=== PATIENT | female | born 1955 | race Caucasian/White ===

== ENCOUNTER 2017-02-23 07:03 | Day surgery (SDC) | payer OTHER ==
[~2017-02-23] VITALS: Ht 160 cm; Wt 93.0 kg
[~2017-02-23 07:03] MED LIST: MULTIPLE VITAMIN PO; SALMON OIL1000 MG PO; TURMERIC CURCUMIN PO; VITAMIN D1000 UNIT PO
--- NOTE | 2017-02-23 07:39 | NUR ---
PRE OP INSTRUCTIONS GIVEN AND SAFETY ISSUES DISCUSSED PT AND SPOUSE HAD QUESTIONS ANSWERED PT CONFIRMED PROCEDURE PT SIGNED CONSENT PT WATCHING TV
--- NOTE | 2017-02-23 10:41 | DIAGNOSTIC IMAGING REPORT ---
PROCEDURE: XR INTRAOPERATIVE LAP SHAYY INDICATION: SURGERICAL TECHNIQUE: Intraoperative fluoroscopy provided for Dr. Byrd performing an intraoperative cholangiogram following cholecystectomy. Total fluoroscopy time 5 seconds. Cumulative dose 1.9 mGy. COMPARISON: None. FINDINGS: A single intraoperative fluoroscopic spot image of the right upper quadrant of the abdomen demonstrates cannulation of the cystic duct stump and opacification of the intrahepatic and extrahepatic biliary tree. There are no filling defects. There is normal passage of contrast into the duodenum. IMPRESSION: 1. Negative intraoperative cholangiogram.
--- NOTE | 2017-02-23 10:46 | NUR ---
PATIENT ARRIVED TO PACU AT 1040. SPONT RESP. AROUSABLE. VITALS STABLE. ABDOMEN SOFT, WITH CLEAN, DRY DRESSINGS. NO NAUSEA AT THIS TIME. WILL CONTINUE TO MONITOR.
[2017-02-23] MEDS ORDERED: NORCO1 TA1 PO (10:50)
--- NOTE | 2017-02-23 10:51 | Provider's Discharge Care Plan ---
Problem, Goal, Plan Problem List 1. Cholelithiasis with chronic cholangitis
--- NOTE | 2017-02-23 10:51 | Provider's Discharge Care Plan ---
Problem, Goal, Plan Problem List 1. Cholelithiasis with chronic cholangitis
--- NOTE | 2017-02-23 11:26 | OPERATIVE REPORT ---
DATE OF SURGERY: 02/23/2017 SURGEON: Tate Byrd MD PERFORMANCE MAKEUP ARTIST: Rony Kay III, MD PREOPERATIVE DIAGNOSIS: 1. Cholelithiasis with chronic cholecystitis POSTOPERATIVE DIAGNOSIS: 1. Cholelithiasis with chronic cholecystitis PROCEDURE PERFORMED: 1. Laparoscopic cholecystectomy with cholangiography. ANESTHESIA: General with endotracheal tube. INDICATIONS: The patient is a 61-year-old woman with gallstones and recurrent right upper quadrant abdominal pain. SURGICAL TECHNIQUE: The patient was taken to main operating room, where a general anesthetic was administered and the patient prepped and draped in the usual sterile fashion. An orogastric tube, IV antibiotics, and sequential compression devices were in place. A local anesthetic of 0.5% Marcaine with epinephrine was used at each incision site. An infraumbilical incision was made and a Veress needle used to insufflate. A 10 mm cannula was passed and visualization was obtained. This demonstrated some adhesions in the right lower quadrant from a previous appendectomy. The gallbladder was elevated and the cystic duct dissected out at the neck of the gallbladder. A clip was placed and a fluoroscopic cholangiogram carried out revealing free flow into the duodenum and no filling defects within the ductal system. The cystic duct and artery were clipped and divided and the gallbladder stripped from the gallbladder fossa using electrocautery. It was pulled to the upper midline site where it was emptied of contents including multiple stones and delivered from the abdomen and submitted for histopathology. The gallbladder bed was inspected and found to be hemostatic and without bile leak. Irrigation and suction were used. Additional Marcaine was instilled, gas was evacuated, and the midline skin sites were closed with interrupted subcuticular 4-0 Vicryl suture. Steri-Strips and dressings were placed at all incisions and the patient left the operating room in good condition. No intraoperative complications were encountered.
--- NOTE | 2017-02-23 11:39 | NUR ---
PT RETURNED FROM PACU NO C/O NAUSEA NO C/O DISCOMFORT DRESSING DRY AND INTACT
[2017-02-23 13:15] VITALS: BP 109/64
--- NOTE | 2017-02-23 13:23 | NUR ---
PT AMBULATED IN ROD MAE WELL AMB TO BR VOIDED SPONTANOUSLY ASKING TO GO HOME STATED STILL FELLS COMFORTABLE. PT OFFERED PAIN MED. STATED DIDN'T WANT ANY REVIEWED DISCHARGE INSTRUCTIONS VERBAL AND WRITTEN PT AND SPOUSE EXPRESSED UNDERSTANDING PT STATED WHEN SHE COULD SHOWER AND WHAT TO DO WITH DRESSING PT DISCHARGED PER WC ACCOMPANIED BY SPOUSE
== END 2017-02-23 13:27 | disposition home or self-care (01) ==
LOC: OR SRH 07:03 → SCU SRH 07:04 → OR SRH 09:00
PROVIDERS: Surgery
PROC: 0FT44ZZ Resection of Gallbladder, Percutaneous Endoscopic Approach (ICD-10-PCS; principal; 2017-02-23 09:00)
PROC: BF131ZZ Fluoroscopy of Gallbladder and Bile Ducts using Low Osmolar Contrast (ICD-10-PCS; principal; 2017-02-23 09:00)
DX: K80.10 Calculus of gallbladder with chronic cholecystitis without obstruction (principal)
CPT/HCPCS: 29229; 29240; 50002; 60001; 70002; 80102; 80212; 80248; 82794; 82807; 83339; 83348; 83587; 83920; 83937; 83982; 84038